=== PATIENT | male | born 1975 | race Caucasian/White ===

== ENCOUNTER 2024-12-04 06:17 | Day surgery (SDC) | payer OTHER ==
[2024-11-27 09:22] VITALS: BP 123/79
[~2024-12-04] VITALS: Ht 170.2 cm; Wt 129.5 kg
--- NOTE | ~2024-12-04 | OR ---
[facility] [address] [address] Draft DATE OF OPERATION: 12/04/2024 SURGEON: Lissy Chase DO PREOPERATIVE DIAGNOSIS: Colon cancer screening. POSTOPERATIVE DIAGNOSIS: Colon cancer screening with diverticulosis. PROCEDURE PERFORMED: Colonoscopy. ANESTHESIA: IV sedation. ESTIMATED BLOOD LOSS: None. DRAINS: None. COMPLICATION: None. DESCRIPTION OF PROCEDURE: The patient was brought to the GI lab and after induction of IV sedation, patient placed in the left lateral position and padded to the satisfaction of anesthesia. Digital rectal exam was performed, was essentially unremarkable. The Olympus video colonoscope was then introduced into the rectum, directed into the rectosigmoid, sigmoid colon, descending colon, transverse colon, into the ascending colon and cecum. The colon was fully insufflated and exploration of mucosal surfaces then carried out. The ascending colon and cecum were without any lesions, ulcerations, intrinsic or extrinsic masses. Scope was brought back to the hepatic flexure to the transverse colon. No intrinsic or extrinsic masses, lesions, ulcerations were appreciated. Scope was brought into the splenic flexure into the descending colon. Some scattered diverticula were noted, but other than that no intrinsic or extrinsic masses were appreciated. Scope was brought into the sigmoid colon where the increased frequency of the diverticula were noted. No evidence of diverticulitis was appreciated. No other intrinsic or extrinsic masses were appreciated. Scope was brought back to the sigmoid which had occasional diverticula PATIENT NAME: CARBAJALLILY FINA OPERATIVE REPORT DATE OF : 75 REPORT #: [id number] PHYSICIAN: LISSY CHASE DO PCP: NICKY DUBON PA-C REPORT IS CONFIDENTIAL AND NOT TO BE RELEASED WITHOUT AUTHORIZATION [facility] [address] [place] [address] Draft again, but otherwise essentially unremarkable. Scope was then removed. The patient tolerated the procedure well, taken to recovery in satisfactory condition. Lissy Chase DO RS/ERIKL /[id number] Copies: ~ PATIENT NAME: LILY CARBAJAL OPERATIVE REPORT DATE OF : 75 REPORT #: [id number] PHYSICIAN: LISSY CHASE DO PCP: NICKY DUBON PA-C REPORT IS CONFIDENTIAL AND NOT TO BE RELEASED WITHOUT AUTHORIZATION
[~2024-12-04 06:17] MED LIST: LACTATED RINGER'S 1,000 ML IV SCH; LOW DOSE ASPIRI81 MG PO; MOTRIN IB200 M1 PO
[2024-12-04 06:24] VITALS: BP 109/75
[2024-12-04] MEDS ORDERED: LIDOCAINE HCL 1% 5 ML SDV INJ ONE (07:00)
[2024-12-04] MEDS ORDERED: IBLOOD GLUCOSE TEST STRIP 1 EA TEST VI PRN (07:00)
[2024-12-04] MEDS ORDERED: propofoL 200 MG/20 ML VIAL ONE ×2 (07:13→08:53)
[2024-12-04] MEDS ORDERED: LIDOCAINE HCL 2% 5 ML SDV ONE (07:13)
--- NOTE | 2024-12-04 09:45 | NUR ---
12/04/24 0945 Geena Galarza PATIENT OPENS HIS EYES. HE FOLLOWS INSTRUCTIONS TO OPEN HIS MOUTH. ORAL AIRWAY IS REMOVED. HE DENIES PAIN. HE RETURNS TO RESTING QUIETLY, WITH HIS EYES CLOSED WHEN UNSTIMULATED.
[2024-12-04 10:12] VITALS: BP 118/89
== END 2024-12-04 10:22 | disposition home or self-care (01) ==
LOC: DS 06:17
PROVIDERS: ATTEND Surgery
PROC: 0DJD8ZZ Inspection of Lower Intestinal Tract, Via Natural or Artificial Opening Endoscopic (ICD-10-PCS; principal; 2024-12-04 08:00)
DX: Z12.11 Encounter for screening for malignant neoplasm of colon (principal); K57.30 Diverticulosis of large intestine without perforation or abscess without bleeding; J45.909 Unspecified asthma, uncomplicated; E78.5 Hyperlipidemia, unspecified; E66.01 Morbid (severe) obesity due to excess calories; Z68.42 Body mass index [BMI] 45.0-49.9, adult; Z80.0 Family history of malignant neoplasm of digestive organs; Z79.899 Other long term (current) drug therapy
CPT/HCPCS: 00812; J2003; J2704; J7121